=== PATIENT | male | born 1990 | race Native Hawaiian/Other Pacific Islander ===

== ENCOUNTER 2018-02-02 15:59 | Emergency (ER) | payer SELFPAY | END 2018-02-02 16:24 | disposition left against medical advice (07) | LOC: ER 16:01 | DX: K08.89 Other specified disorders of teeth and supporting structures (principal) ==

== ENCOUNTER 2018-02-02 16:31 | Emergency (ER) | payer SELFPAY ==
[~2018-02-02] VITALS: Ht 177.8 cm; Wt 79.4 kg
--- NOTE | 2018-02-02 16:43 | ED EENT ---
History of Present Illness General Chief Complaint: Dental Problems/Pain Stated Complaint: TOOTH PAIN Source: patient Exam Limitations: no limitations History of Present Illness Date Seen by Provider: Feb 02, 2018 Time Seen by Provider: 16:40 Initial Comments Patient is a 27-year-old male who presents to the emergency room with complaints of dental pain. He is from [facility] and he has been [place] today visiting his grandpa when his tooth pain became worse. He has an appointment on 03/05/18 to have his upper teeth pulled and fitted for dentures. He has numerous fractured teeth, remaining teeth are very stained, numerous dental caries. Timing/Duration: other (ongoing) Location: dental Prearrival Treatment: over the counter meds, other (ibuprofen) Associated Symptoms: tooth pain Allergies and Home Medications Allergies Uncoded Allergies: UNKNOW NAME OF ANTIBIOTC. (Allergy, Unknown, 02/02/18) Patient Home Medication List Home Medication List Reviewed: Yes Review of Systems Review of Systems Constitutional: see HPI; No chills, No fever Mouth: see HPI, pain Past Qdhwepu-Nwdltv-Onmeih Hx Past Med/Social Hx: Reviewed Nursing Past Med/Soc Hx Family Medical History Reviewed Nursing Family Hx Physical Exam Vital Signs Vital Signs - First Documented 02/02/18 02/02/18 16:34 17:07 Temp 97.8 Pulse 104 Resp 18 B/P (MAP) 145/68 (93) Pulse Ox 98 O2 Delivery Room Air Height, Weight, BMI Height: '" Weight: lbs. oz. kg; BMI Method: General Appearance: WD/WN, no apparent distress Eyes: bilateral eye normal inspection, bilateral eye PERRL, bilateral eye EOMI Mouth/Throat: dental tenderness, other (the patient has a fractured tooth that is noted in imaging that is very painful, there is no swelling, redness, drainage around the tooth.) Cardiovascular: normal peripheral pulses, regular rate, rhythm, no edema, no gallop, no JVD, no murmur Respiratory: chest non-tender, lungs clear, normal breath sounds, no respiratory distress, no accessory muscle use Neurologic/Psychiatric: alert, normal mood/affect, oriented x 3 Skin: normal color, warm/dry Progress/Results/Core Measures Results/Orders My Orders Progress Progress Note : Time: 16:40 Progress Note I have seen and evaluated the patient. I have given him a 1 time dose of pain medication in the ER. He has appointments in place to address his dental issues. He was instructed to follow up with primary care and his dentist on arrival back home. he agrees with plans for discharge and return precautions were given. Departure Impression Primary Impression: Dental caries Additional Impression: Pain due to dental caries Disposition: , SELF-CARE Condition: Stable/Unchanged Departure-Patient Inst. Decision time for Depature: 16:44 Referrals: NO,LOCAL PHYSICIAN (PCP/Family) Primary Care Physician Patient Instructions: Dental Pain (DC), Fractured Tooth (DC), MANAGING YOUR CHRONIC PAIN Add. Discharge Instructions: He may use [id number] ibuprofen and Tylenol as directed by the bottle for pain relief. You may benefit from ksyz-yep-[id number] oral numbing medication like Orajel. Keep your appointment as scheduled on 05 March with your maxillofacial surgeon. Follow up with your primary care provider on Saturday for recheck and further evaluation. Return back to the emergency room for any worsening symptoms or concerns as needed. All discharge instructions reviewed with patient and/or family. Voiced understanding. Images Mouth/Nose 1 - Caries, Fracture Tooth, Tenderness JING MALAGON Feb 02, 2018 16:43
[2018-02-02] MEDS ORDERED: HYDROcodone/APAP 5 MG/325 MG (LORTAB) TAB PO ONE (16:45)
[2018-02-02 17:07] VITALS: BP 145/68
== END 2018-02-02 17:07 | disposition home or self-care (01) ==
LOC: EDUNIT# 16:31 → ER 16:32
DX: K02.9 Dental caries, unspecified (principal)
CPT/HCPCS: 99283